=== PATIENT | female | born 1970 | race American Indian/Alaskan Native ===

== ENCOUNTER 2018-10-27 08:58 | Outpatient (CLI) | payer MEDICAID, OTHER ==
--- NOTE | 2018-10-27 14:51 | Ultrasound Report ---
RIGHT UPPER QUADRANT ABDOMINAL ULTRASOUND: 10/27/18 08:58:00 CLINICAL: Right upper quadrant pain. FINDINGS: High-resolution ultrasound demonstrated an enlarged multicystic liver with too numerous to count cysts in the left and right lobes. The left lobe is almost completely replaced by cysts. The largest cyst measures 7.3 cm in the medial segment of the left lobe. The portions of the liver not involved by cysts have a heterogeneous echo pattern. No solid liver mass identified. The gallbladder is normally distended with no stones. The gall bladder wall measures 1.5 mm in thickness. Normal intrahepatic and extra hepatic bile ducts. The common bile duct measures 1.9 mm diameter. The pancreas was not well imaged because of body habitus and bowel gas. Normal upper abdominal aorta. The right kidney is normal and measures 10.0 x 4.9 x 5.1cm.the right renal collecting system is nondilated. No renal mass, cyst or shadowing. No ascites or mass. IMPRESSION: 1. Numerous benign hepatic cysts and moderate hepatic enlargement. 2. No cholelithiasis. 3. Normal biliary tract.
--- NOTE | 2018-10-27 16:20 | Mammography Report ---
BILATERAL DIGITAL SCREENING MAMMOGRAM with CAD: 10/27/18 08:58:00 CLINICAL: Routine screening. COMPARISON:02/13/16 FINDINGS: The breasts are heterogeneously dense, which may obscure small masses. A left upper asymmetry on the MLO view requires additional imaging.No architectural distortion or suspicious calcifications.The right breast is negative. IMPRESSION: Left asymmetry requiring further workup. BI-RADS CATEGORY: 0 -- Additional Imaging Evaluation Required RECOMMENDATION: Recall for left exaggerated CC, mediolateral and spot magnification MLO views and left breast ultrasound if needed. ACR BI-RADS MAMMOGRAPHIC CODES: 0 = Needs additional imaging evaluation; 1 = Negative; 2 = Benign; 3 = Probably benign; 4 = Suspicious; 5 = Malignant; 6 = Known biopsy-proven malignancy COMMENT: 1. Dense breast tissue, i.e., adenosis, fibrocystic changes, etc., may obscure an underlying neoplasm. 2. Approximately 10% of cancers are not detected with mammography. 3. A negative mammography report should not delay biopsy if a clinically suspicious mass is present. COMMENT: Patient follow-up letters are generated via our [employer] application.
== END 2018-10-27 08:59 | disposition home or self-care (01) ==
LOC: SPVWC 08:58
PROVIDERS: ATTEND Family Medicine
DX: Z12.31 Encounter for screening mammogram for malignant neoplasm of breast (principal); K76.89 Other specified diseases of liver; R16.0 Hepatomegaly, not elsewhere classified
CPT/HCPCS: 76705; 77067

== ENCOUNTER 2018-11-05 08:47 | Outpatient (CLI) | payer MEDICAID ==
--- NOTE | 2018-11-05 09:25 | Mammography Report ---
LEFT DIGITAL DIAGNOSTIC MAMMOGRAM : 11/05/18 08:47:00 CLINICAL: Recalled for asymmetry. COMPARISON:10/27/18 screening FINDINGS: Additional mammographic views were performed and are negative. IMPRESSION: Negative Mammogram. BI-RADS CATEGORY: 1 -- Negative RECOMMENDATION: Routine mammographic screening in one year. ACR BI-RADS MAMMOGRAPHIC CODES: 0 = Needs additional imaging evaluation; 1 = Negative; 2 = Benign; 3 = Probably benign; 4 = Suspicious; 5 = Malignant; 6 = Known biopsy-proven malignancy COMMENT: 1. Dense breast tissue, i.e., adenosis, fibrocystic changes, etc., may obscure an underlying neoplasm. 2. Approximately 10% of cancers are not detected with mammography. 3. A negative mammography report should not delay biopsy if a clinically suspicious mass is present. COMMENT: Patient follow-up letters are generated via our [employer] application.
== END 2018-11-05 08:48 | disposition home or self-care (01) ==
LOC: SPVWC 08:47
PROVIDERS: ATTEND Family Medicine
DX: R92.8 Other abnormal and inconclusive findings on diagnostic imaging of breast (principal)